=== PATIENT | female | born 1990 | race Caucasian/White ===

== ENCOUNTER 2017-02-20 22:52 | Emergency (ER) | payer OTHER ==
[~2017-02-20 22:52] MED LIST: IBUPROFEN600 M1 PO; ROBAXIN-750750 M1 PO; TYLENOL WITH C1 EACH PO
[2017-02-20 22:58] VITALS: BP 150/104
--- NOTE | 2017-02-20 23:10 | ED GENERAL ADULT ---
History of Present Illness General Chief Complaint: Abdominal Pain/Flank Pain Stated Complaint: ABD PAIN, +N/V Source: patient Exam Limitations: no limitations Vital Signs & Intake/Output Vital Signs & Intake/Output Vital Signs Date Time Temp Pulse Resp B/P B/P Pulse O2 O2 Flow FiO2 Mean Ox Delivery Rate 02/20 2258 97.3 112 22 150/104 97 Room Air Allergies Coded Allergies: peach (HANDS ITCH AND SWELL 05/12/16) Reconcile Medications Methocarbamol (Robaxin-750) 750 MG TABLET 1 TAB PO TID PRN SPASM Tylenol With Codeine (Tylenol With Codeine #3 Tablet) 300 MG-30 MG TABLET 1 TAB PO Q4-6 PRN PRN PAIN Triage Note: PER PT STARTED SPOTTING AND ABD PAIN, TONIGHT VOMITTED X 1 MENSES IS 2 WEEKS EARLY IF ITS MY PERIOD, ALSO ? UTI Triage Nurses Notes Reviewed? yes Onset: Abrupt Duration: hour(s): Timing: recent history : No Patient currently breastfeeds: No HPI: 02/20/17 11:30 pm 26-year-old female presents to the emergency department complaining of lower abdominal pain. According to the patient she was due to go to work today and she had a sudden onset of menstrual cramps. She became concerned that she vomited. She also complains of dysuria. She denies vaginal discharge. She denies any possibility of . The onset of the symptoms was abrupt, the duration has been over the past 24 hours, the severity is significant; as her symptoms required her to come to the emergency department for care. Past History Travel History Traveled to [place] past 21 day No Medical History Any Pertinent Medical History? see below for history Neurological: NONE EENT: NONE Cardiovascular: NONE Respiratory: NONE Gastrointestinal: NONE Hepatic: NONE Renal: NONE Musculoskeletal: NONE Psychiatric: NONE Endocrine: NONE Surgical History Surgical History: none Psychosocial History What is your primary language Micronesian Tobacco Use: Never used Family History Hx Contributory? No Review of Systems Review of Systems Constitutional: Reports: no symptoms, see HPI, chills, diaphoresis, fever, malaise, weakness, unexplained weight loss. EENTM: Reports: no symptoms. Respiratory: Reports: no symptoms. Cardiovascular: Reports: no symptoms. GI: Reports: see HPI. Genitourinary: Reports: see HPI. Musculoskeletal: Reports: no symptoms. Skin: Reports: no symptoms. Neurological/Psychological: Reports: no symptoms. Hematologic/Endocrine: Reports: no symptoms. Immunologic/Allergic: Reports: no symptoms. All Other Systems: Reviewed and Negative Physical Exam Physical Exam General Appearance: well developed/nourished, alert, awake, anxious Head: atraumatic, normal appearance Eyes: Bilateral: normal appearance, PERRL, EOMI. Ears, Nose, Throat: normal pharynx, normal ENT inspection Neck: normal inspection, supple, full range of motion Respiratory: normal breath sounds, chest non-tender Cardiovascular: regular rate/rhythm Peripheral Pulses: 4+ radial (R), 4+ radial (L) Gastrointestinal: soft, tenderness Back: normal range of motion Extremities: normal inspection, normal range of motion Neurologic/Psych: no motor/sensory deficits, awake, alert, oriented x 3 Skin: intact, normal color, warm/dry Core Measures ACS in differential dx? No CVA/TIA Diagnosis: No Severe Sepsis Present: No Septic Shock Present: No Progress Differential Diagnoses I considered the following diagnoses in my evaluation of the patient: [ Appendicitis, PID, cervicitis, , UTI, dysmenorrhea, ovarian cyst, ovarian torsion] Plan of Care: Orders Procedure Date/time Status COMPREHENSIVE METABOLIC PANEL 02/21 2332 Complete CBC WITHOUT DIFFERENTIAL 02/21 2332 Complete URINE 02/20 2259 Complete URINALYSIS 02/20 2259 Complete Current Medications Sig/Mehdi Start time Last Medication Dose Stop Time Status Admin Sodium Chloride 1,000 ML BOLUS ONE 02/20 2345 AC 02/21 (Normal Saline 0.9%) 02/21 0144 0007 Laboratory Tests 02/20/17 2345: Anion Gap 11, Estimated GFR > 60, BUN/Creatinine Ratio 18.8, Glucose 103 H, Calcium 9.3, Total Bilirubin 0.3, AST 14, ALT 20, Alkaline Phosphatase 50, Total Protein 7.1, Albumin 4.3, Globulin 2.8, Albumin/Globulin Ratio 1.5, CBC w Diff NO MAN DIFF REQ, RBC 4.44, MCV 80.6 L, MCH 26.9 L, RDW 16.1 H, MPV 8.0, Gran % 58.5, Lymphocytes % 34.3, Monocytes % 5.4, Eosinophils % 1.2, Basophils % 0.6, Absolute Granulocytes 4.6, Absolute Lymphocytes 2.7, Absolute Monocytes 0.4, Absolute Eosinophils 0.1, Absolute Basophils 0, PUBS MCHC 33.4 02/20/17 2310: Urine Color BLDY H, Urine Clarity CLDY H, Urine pH 6.0, Ur Specific [place] 1.025, Urine Protein 100 H, Urine Ketones NEG, Urine Nitrite NEG, Urine Bilirubin NEG, Urine Urobilinogen 0.2, Ur Leukocyte Esterase TRACE H, Ur Microscopic SEDIMENT EXAMINED, Urine RBC >75 H, Urine WBC 3-5 H, Ur Epithelial Cells RARE, Urine Bacteria FEW H, Urine Hemoglobin LARGE H, Urine Glucose NEG, Urine Test NEGATIVE Initial ED EKG: none Departure Departure Disposition: STILL A PATIENT Condition: Stable Clinical Impression Primary Impression: Abdominal pain Secondary Impressions: UTI (urinary tract infection) Referrals: KATHE PATE,SAIGE Russell (PCP/Family) Departure Forms: Customer Survey General Discharge Information Comments 02/21/17 12:26 AM Patient has no abdominal pain at this time. Labs unremarkable. She does have scant pyuria. test was negative. She will get an outpatient ultrasound of the pelvis and gallbladder. Follow-up with her [employer] doctor on Wednesday. Zofran and amoxicillin as instructed.she was told to return to the emergency department should she have any pain in the right lower quadrant and warning signs for appendicitis were given. Her Couch score is low risk. Critical Care Note Critical Care Note Critical Care Time: non-applicable
[2017-02-20 23:50] LABS: ABSOLUTE BASOPHIL COUNT 0 /CUMM (0.0-0.2); ABSOLUTE EOSINOPHIL COUNT 0.1 /CUMM (0.0-0.7); ABSOLUTE GRANULOCYTE CT 4.6 /CUMM (1.4-6.5); ABSOLUTE LYMPH COUNT 2.7 /CUMM (1.2-3.4); ABSOLUTE MONOCYTE COUNT 0.4 /CUMM (0.10-0.60); BASOPHIL % 0.6 % (0.0-2.0); EOSINOPHIL % 1.2 % (0-5); GRANULOCYTE % 58.5 % (42.2-75.2); HEMATOCRIT 35.8 % (37-47); MEAN CORPUSCULAR HGB 26.9 PG (27.0-31.0); MEAN CORPUSCULAR HGB CONC 33.4 G/DL (33.0-37.0); MEAN CORPUSCULAR VOLUME 80.6 FL (81.0-99.0); PLATELET COUNT 320 /CUMM (130-400); RBC DISTRIBUTION WIDTH 16.1 % (11.5-14.5); RED BLOOD CELL CT 4.44 /CUMM (4.20-5.40); WHITE BLOOD CELL COUNT 7.9 /CUMM (4.8-10.8)
[2017-02-21] MEDS ORDERED: AMOXICILLIN500 M3 PO (00:31)
[2017-02-21] MEDS ORDERED: ZOFRAN4 M2 PO (00:31)
== END 2017-02-21 00:43 ==
LOC: ERH 22:52
PROVIDERS: Emergency Medicine
DX: N39.0 Urinary tract infection, site not specified (principal)
CPT/HCPCS: 81001; 81025; 96361; 96374; J0131